=== PATIENT | male | born 1965 | race Caucasian/White ===

== ENCOUNTER → 2019-08-17 10:58 | Outpatient (CLI) | payer OTHER, SELFPAY ==
[2019-08-10 14:02] VITALS: BMI 27.6
[2019-08-17 12:37] LABS: Anion Gap 7 (5-15); BUN 17 mg/dL (7-18); BUN/Creat Ratio 14.5 RATIO (10-20); Calcium,Total 9.3 mg/dL (8.5-10.1); Chloride 106 mmol/L (98-107); Cholesterol 248 mg/dL (200); Creatinine, Serum 1.17 mg/dL (0.70-1.30); EST Glomerular Filtration Rate 70 mL/min (>60); Est Glom Filt Rate - Afr Amer 84 mL/min (>60); Glucose 123 mg/dL (74-106); High Density Lipoprotein 42 mg/dL; PSA,Total - Annual Screen 1.31 ng/mL (0.00-4.00); Potassium 4.1 mmol/L (3.5-5.1); Sodium Level 138 mmol/L (136-145); Triglycerides 222 mg/dL; Very Low Density Lipoprotein 44 mg/dL (5-40)
== END ==
PROVIDERS: PCP Student in an Organized Health Care Education/Training Program; Referring Provider Student in an Organized Health Care Education/Training Program; Visit Provider Student in an Organized Health Care Education/Training Program
DX: K40.90 Unilateral inguinal hernia, without obstruction or gangrene, not specified as recurrent (principal); R39.12 Poor urinary stream; R73.01 Impaired fasting glucose; Z13.6 Encounter for screening for cardiovascular disorders; Z72.0 Tobacco use
CPT/HCPCS: 36415; 80048; 80061; 83036; 84153; G0103

== ENCOUNTER 2019-08-23 10:44 | Day surgery (SDC) | payer OTHER, SELFPAY ==
--- NOTE | 2019-08-10 02:32 | HP_ITS ---
Intake Vital Signs 08/10/19 Height 6 ft 08/10/19 Weight: 203 lb 6 oz 08/10/19 BMI 27.6 08/10/19 BP 132/84 H 08/10/19 Blood Pressure Location Rt brachial 08/10/19 Position Sitting 08/10/19 Respiration 18 08/10/19 Pulse 78 08/10/19 Pulse Source Monitor 08/10/19 Temp 97.6 F L 08/10/19 Temp Source Oral 08/10/19 Pulse Oximetry (%) 98 08/10/19 Oxygen Delivery Method room air Intake Visit Reasons: Inguinal Hernia Chief Complaint: Inguinal Hernia Police Detective Required: No Accompanied by: Allergies No Known Allergies Allergy (Unverified 08/10/19 14:04) PFSH Surgical History (Updated 08/10/19 @ 14:00 by Jocelyn Hughes) History of umbilical hernia repair (Acute) history of microdisection (Acute) history of varicocelectomy (Acute) Family History (Updated 08/10/19 @ 14:01 by Jocelyn Hughes) Mother Uterine cancer Hyperlipidemia Father Diabetes Social History (Updated 08/10/19 @ 14:[address] Gerry Allison MD) Smoking Status: Current every day smoker alcohol intake: current HPI HPI HPI: SHANIA CHRISTIAN, is a 54 M who presents to the office today for HPI HPI Surgical H&P: Yes HPI: SHANIA CHRISTIAN, is a 54 M who presents to the office today for right groin bulging. Patient reports that he has a hernia for years but is starting to bother her more. He also experiences intermittent pain on the left side. Patient does not report any nausea or vomiting or abdominal pain. Patient has a history of a trans-inguinal varicocele resection in the past. ROS General General: No weight change, appetite, fatigue, colon cancer, breast cancer or weakness HEENT HEENT: No difficulty swallowing, eye injury, eye surgery, swollen glands or hoarseness Endo Endocrine: No thyroid disease, diabetes mellitus, thyroid cancer, Hair loss, heat intolerance or cold intolerance Skin Skin: No rash or changing moles Breast Breast: No left breast lump, right breast lump, nipple discharge, breast pain, abnormal mammogram, abnormal US or breast enlargement Musc Musculoskeletal: No back problems, arthritis, rheumatoid arthritis, gout or joint pain Cardio Cardiovascular: No murmur, pacemaker, heart disease, atrial fibrillation, high blood pressure, heart attack, heart stent, palpitations, shortness of breat with exertion or chest pain Psych Psychiatric: No depression, anxiety or hearing voices Resp Respiratory: No shortness of breath, No sleep apnea, No cough, No COPD, No asthma, No emphysema, No wheezing Gastro Gastrointestinal: No abdominal pain, No nausea or vomiting, No diarrhea, No constipation, No blood in stool, No acid reflux, No hemorrhoids, No ulcers, No gallbladder problem, No black,tarry stools El Hematologic: No blood thinners, No blood disorders, No bleeding, No anemia, No blood clots Neuro Neurologic: No system reviewed and no additional complaints, except as docu, No as per HPI, No abnormal walking, No abnormal hearing, No abnormal movements, No abnormal speech, No behavioral changes, No burning sensations, No confusion, No seizure-like activity, No unsteadiness, No dizziness, No localized weakness, No frequent falls, No headache(s), No lack of coordination, No loss of vision, No memory loss, No numbness, No other visual disturbances, No radiating pain, No restless legs, No sensory deficit, No fainting, No tingling, No tremor(s), No weakness, No other Exam Const General: cooperative Orientation: alert, oriented x3 HENMT Head: normal to inspection Ears: hearing grossly normal bilaterally Eyes General: appearance normal, both eyes and all related structures Visual Topete: normal visual topete by confrontation Neck Neck: normal visual inspection Chest Chest palpation & inspection: normal inspection of the chest Breast Palpation: No nipple discharge Resp Effort & Inspection: normal respiratory effort Auscultation: clear to auscultation bilaterally Cardio Rate: regular rate Rhythm: regular rhythm Heart Sounds: no murmurs GI Inspection: non-distended Palpation: soft, nontender Other: Patient has bilateral inguinal hernias, right larger than left. Both are easily reducible and nontender. Musc Cervical Spine: normal cervical lordosis, cervical ROM normal Skin General: no rashes or lesions noted Neuro General: alert, oriented x3 Cranial Nerves: CN's II-XI intact bilaterally Cognition: normal cognition Extrem General: normal to inspection, full ROM Psych Appearance: grossly normal Affect: normal affect Assessment & Plan Problems 1. Bilateral inguinal hernia without obstruction or gangrene, recurrence not specified K40.20 Plan The patient actually has bilateral inguinal hernias. The right side is larger than the left but he does have a left inguinal hernia on Valsalva. I discussed open and laparoscopic repair with the patient. The patient elects for laparoscopic repair. I discussed robotic assisted laparoscopic inguinal hernia repair with mesh with the patient. I discussed the risks including but not limited to bleeding, infection, underlying bowel injury, spermatic cord injury, chronic groin pain. The patient understands the risks and is willing to proceed. Gerry Allison MD Pager: [facility] [address] [place] [address], [address] [place] [address] Office: Coding Level of Care Code Off vis,new,level 4 Diagnoses Bilateral inguinal hernia without obstruction or gangrene, recurrence not specified K40.20 ??Obstruction and gangrene presence: without obstruction or gangrene ??Recurrence: not specified as recurrent 08/10/19 1432 <Electronically signed by Gerry magallanes MD> Date _ Gerry Allison MD I have re-examined the patient. There are no clinical changes since date of exam.
[2019-08-10 14:02] VITALS: BMI 27.6
--- NOTE | 2019-08-17 11:14 | EKG12_ITS ---
Test Reason : PREOP Blood Pressure : / mmHG Vent. Rate : 061 BPM Atrial Rate : 061 BPM P-R Int : 124 ms QRS Dur : 090 ms QT Int : 406 ms P-R-T Axes : 047 058 043 degrees QTc Int : 408 ms Normal sinus rhythm Possible Left atrial enlargement Borderline ECG Confirmed by MÓNICA CROW, INES ([id number]), digital editor LAUREN PRATER ([id number]) on 08/18/2019 9:19:08 AM Referred By: Gerry Allison Confirmed By:INES SALES MD
[2019-08-17 12:14] LABS: Hematocrit 50.1 % (40-54); Hemoglobin 16.5 g/dL (13.0-16.5); Mean Corp Hgb Conc 32.9 g/dL (32-36); Mean Corpuscular Hgb 28.4 pg (27.0-32.0); Mean Corpuscular Volume 86.4 fL (80-94); Mean Platelet Vol. 11.7 fl (6.2-12.0); Platelet Count 291 K/mm3 (150-450); RBC Distribution Width CV 13.7 % (11.6-14.6); RBC Distribution Width SD 42.5 fl (35.1-43.9); White Blood Count 10.5 K/mm3 (4.4-11.0)
[2019-08-23 11:14] VITALS: BP 125/78; PULSE 83; RESP 16; TEMP 36.8; O2SAT 96; BMI 27.2
[2019-08-23] MEDS: Lactated Ringers 1,000 ML 100 ML IV (11:21)
[2019-08-23] MEDS: Cefazolin 2 GM in 0.9% Normal Saline 100 ML IV (12:13)
--- NOTE | 2019-08-23 14:23 | OP.PCM_ITS ---
Problem List (1) Bilateral inguinal hernia Status: Acute Qualifiers: Obstruction and gangrene presence: without obstruction or gangrene Recurrence: non-recurrent Qualified Code(s): K40.20 - Bilateral inguinal hernia, without obstruction or gangrene, not specified as recurrent Report of Operation Date of Procedure: 08/23/19 Pre-Operative Diagnosis: Bilateral inguinal hernias Post-Operative Diagnosis: Same Surgery/Procedure Performed:: Robotic assisted laparoscopic bilateral inguinal hernia repair with mesh Description of Surgical Findings:: Bilateral direct inguinal hernias Specimen's removed: None Description of Procedure: Patient was brought back to the operating room and general anesthesia was induced. Abdomen was prepped and draped in usual sterile fashion. A small incision was made superior to the umbilicus and the fascia was elevated and a Veress needle was placed into the abdomen. A drop test was performed. The abdomen was insufflated 15 mmHg. The camera port was placed into the abdomen and the abdomen was inspected. The patient had bilateral direct inguinal hernias. The patient was placed in a Trendelenburg position. An 8 mm port was placed in the left lateral sidewall as well as right lateral sidewall under direct visualization. The robot was docked. An incision in the peritoneum was created using cautery scissors. Dissection was carried inferiorly until the hernia sac was addressed. The hernia sac was reduced into the abdomen and the adhesions were taken down and the dissection continued posteriorly. Pro-toll line mechanic mesh was unfolded into the right inguinal region and covered the hernia. An 0 Vicryl suture was used to tack the inferior medial corner of the mesh to the pubic tubercle. The peritoneum was reapproximated using a running 3-0 VLock suture. There was a considerable defect in the peritoneum. The hernia sac was reflected over this opening and sutured to the peritoneum using another running 3-0V lock suture. This created complete coverage of the mesh with peritoneum. Next the left side was addressed. A small incision was made in the peritoneum and this was dissected down to the direct inguinal hernia. The hernia sac was reduced and the adhesions were taken down. Once dissection was fully performed another piece of pro-toll line mechanic mesh was unfolded in the left inguinal region and covered the inguinal hernia. The peritoneum was reapproximated using a running 3 oh VueLock suture. Both mesh pieces were completely covered with peritoneum at the end of the procedure. The robot was undocked and the ports were removed. The skin incisions were anesthetized with Marcaine and closed with interrupted 4-0 Monocryl sutures as well as Steri-Strips and bandages. Testicles were checked and present in the scrotum at the end the case. Patient tolerated procedure well was brought to PACU in stable condition. Grafts/Implants Used: Pro-toll line mechanic mesh bilateral inguinal regions - Admit VTE Documentation VTE Mechan Device Prophylaxis: SCD's
[2019-08-23 14:30] VITALS: BP 125/78; BP 146/80; PULSE 67; RESP 18; TEMP 36.2; O2SAT 96
--- NOTE | 2019-08-23 14:30 | DCINST_ITS ---
Discharge Diet: Light diet - advance as tolerated Discharge Activity: Return to Normal Activity, May Not Drive - for 2-3 days or while taking narcotic pain meds., May Shower - with the bandage in place 1-2 days after surgery. Lifting Restrictions: 20 pounds for 4 weeks. Additional Activity Instructions:: Climbing stairs is fine, walking is encouraged. Sitting in bed may be uncomfortable. Sitting up using your lateral muscles (sitting up sideways) is usually more comfortable. Do not drive, work heavy equipment of sign legal documents for 24 hours. If your hernia repair was an ingunial repair, you may have scrotal swelling, an ice pack and/or athletic support can provide more comfort. Pain medications may cause nausea, you should typically eat light foods as you take your pain medications. Pain medications may also cause constipation. If you have difficulty with this, discuss with your doctor. Call your doctor if your incision/area has: Continuous Slow Oozing, Sudden Increased Bleeding, Increased Pain/ Swelling, Increased Redness, Foul Smelling Discharge Call your doctor if you observe: Fever of 101 or Higher Suture Line Care: Avoid Pulling/Pushing, Avoid Pinching/Bending Change Dressing in (Days):: 3 - Leave steri-strips for 1 week. May protect with a guaze bandaid. Cleanse incision/area with: Keep Dressing Clean & Dry Allergies/Adverse Reactions: Allergies No Known Allergies Allergy (Unverified 08/23/19 11:13) Medications to take at Discharge Oxycodone HCl/Acetaminophen [Percocet 5-325 mg Tablet] 1 - 2 tab PO Q6H PRN 5 Days #15 tablet 08/23/19 The following prescriptions were given: Oxycodone HCl/Acetaminophen [Percocet 5-325 mg Tablet] 1 - 2 tab PO Q6H PRN 5 Days #15 tablet PRN Reason: Pain Score 4-10/10 Transmission Status: Sent to [facility] Orders to be completed after discharge: 12 Lead EKG [[facility]] Time Frame: 08/16/19, Facility: [facility], Location: Cardiovascular Services CBC-Complete Blood Cnt No Diff Time Frame: 08/16/19, Facility: [facility], Location: Laboratory Test Results: Test results from this visit will be discussed in further detail at your follow- up appointment, if applicable. Please Follow Up With: Gerry Allison MD When: Please call to schedule 2 week follow up appointment. [phone]
[2019-08-23 14:45] VITALS: BP 125/78; BP 162/79; PULSE 61; RESP 16; O2SAT 92
[2019-08-23 15:01] VITALS: BP 125/78; BP 156/86; PULSE 64; RESP 18; TEMP 36.8; O2SAT 96
== END 2019-08-23 16:24 | disposition home or self-care (01) ==
LOC: SDC 10:45 → AC 10:46
PROVIDERS: PCP Student in an Organized Health Care Education/Training Program; Referring Provider Surgery; Visit Provider Surgery
PROC: (CPT 49650; principal; 2019-08-23 12:10)
DX: K40.20 Bilateral inguinal hernia, without obstruction or gangrene, not specified as recurrent (principal); F17.200 Nicotine dependence, unspecified, uncomplicated
CPT/HCPCS: 00840; 49650; S2900; 85027; 93005; J7120; J2405